=== PATIENT | male | born 1990 | race African-American/Black ===

== ENCOUNTER 2018-01-22 00:17 | Emergency (ER) | payer SELFPAY ==
[2018-01-22] MEDS ORDERED: Ibuprofen 800 MG TAB ONE (02:05)
--- NOTE | 2018-01-22 08:03 | RAD ---
2 VIEWS CHEST: Date: 01/22/18 COMPARISON: 01/14/03. HISTORY: Mid sternal chest pain. FINDINGS: Two views of the chest show normal sized cardiomediastinal silhouette. There is no evidence of consol idation, mass, or pleural effusion. The bones are unremarkable. IMPRESSION: No evidence of acute cardiopulmonary disease. POS: [facility]
--- NOTE | 2018-01-23 15:53 | EKG ---
Test Reason : Blood Pressure : / mmHG Vent. Rate : 062 BPM Atrial Rate : 062 BPM P-R Int : 136 ms QRS Dur : 084 ms QT Int : 406 ms P-R-T Axes : 067 079 043 degrees QTc Int : 412 ms Normal sinus rhythm with sinus arrhythmia Normal ECG Confirmed by FRACISCO SINGH ([id number]), assistant editor GOSIA ALICEA ([id number] on 01/23/2018 3:53:14 PM Referred By: Confirmed By:FRACISCO SINGH
== END 2018-01-22 02:12 | disposition home or self-care (01) ==
LOC: ERS 00:17
DX: R07.89 Other chest pain (principal)
CPT/HCPCS: 71046; 93005

== ENCOUNTER 2018-03-26 23:29 | Emergency (ER) | payer SELFPAY ==
[2018-03-26] MEDS ORDERED: Ondansetron ODT 4 MG TAB ONE (23:56)
[2018-03-26] MEDS ORDERED: Acetaminophen 325 MG TAB ONE (23:56)
[2018-03-27] MEDS ORDERED: Metoclopramide HCl 10 MG/2 ML VIAL ONE (00:21)
[2018-03-27] MEDS ORDERED: diphenhydrAMINE 50 MG/ML VIAL ONE (00:21)
== END 2018-03-27 01:27 | disposition home or self-care (01) ==
LOC: ERS 23:29
DX: R51 Headache (principal)
CPT/HCPCS: 87804; 96365; 96375; J1200; J2765; Q0162

== ENCOUNTER 2018-07-11 13:58 | Emergency (ER) | payer SELFPAY ==
[2018-07-11] MEDS ORDERED: methylPREDNISolone Sod Succ/PF 125 MG/2 ML VIAL ONE (14:13)
[2018-07-11] MEDS ORDERED: Famotidine 20 MG TAB ONE (14:14)
[2018-07-11] MEDS ORDERED: Mag-Al 1200 mg/1200 mg/30 ML UDCUP ONE (14:30)
[2018-07-11] MEDS ORDERED: Lidocaine Viscous Sol 2% 15 ml UD Cup ONE (14:30)
[2018-07-11] MEDS ORDERED: EPINEPHrine 1 MG/ML AMP ONE (14:30)
== END 2018-07-11 18:29 | disposition home or self-care (01) ==
LOC: ERS 13:58
DX: S10.96XA Insect bite of unspecified part of neck, initial encounter (principal); L50.0 Allergic urticaria; W57.XXXA Bitten or stung by nonvenomous insect and other nonvenomous arthropods, initial encounter
CPT/HCPCS: 96372; 96374; J0171; J2930

== ENCOUNTER 2018-09-23 15:07 | Emergency (ER) | payer SELFPAY ==
[2018-09-23] MEDS ORDERED: predniSONE 20 MG TAB ONE (15:19)
[2018-09-23] MEDS ORDERED: Famotidine 20 MG TAB ONE (15:19)
[2018-09-23] MEDS ORDERED: diphenhydrAMINE 25 MG CAP ONE (15:19)
== END 2018-09-23 16:59 | disposition home or self-care (01) ==
LOC: ERS 15:07
DX: T78.40XA Allergy, unspecified, initial encounter (principal); Z71.6 Tobacco abuse counseling; F17.210 Nicotine dependence, cigarettes, uncomplicated
CPT/HCPCS: 99406; J7512; Q0163

== ENCOUNTER 2021-03-25 16:38 | Emergency (ER) | payer SELFPAY | END 2021-03-25 17:38 | disposition home or self-care (01) | LOC: ERS 16:38 | DX: S61.411A Laceration without foreign body of right hand, initial encounter (principal); F17.210 Nicotine dependence, cigarettes, uncomplicated; W26.8XXA Contact with other sharp object(s), not elsewhere classified, initial encounter | CPT/HCPCS: 12001 ==

== ENCOUNTER 2021-07-20 22:58 | Emergency (ER) | payer SELFPAY | END 2021-07-20 23:48 | disposition home or self-care (01) | LOC: ERS 22:58 | DX: G89.29 Other chronic pain (principal); M25.531 Pain in right wrist; F17.210 Nicotine dependence, cigarettes, uncomplicated | CPT/HCPCS: 99283 ==

== ENCOUNTER 2021-11-01 19:57 | Emergency (ER) | payer SELFPAY | END 2021-11-01 20:39 | disposition home or self-care (01) | LOC: ERS 19:57 | DX: R04.0 Epistaxis (principal) | CPT/HCPCS: 99283 ==

== ENCOUNTER 2023-03-26 09:52 | Emergency (ER) | payer BC, SELFPAY ==
[2023-03-26] MEDS ORDERED: Cyclobenzaprine 10 MG TAB ONE (11:01)
== END 2023-03-26 11:09 | disposition home or self-care (01) ==
LOC: ERS 09:52
DX: S16.1XXA Strain of muscle, fascia and tendon at neck level, initial encounter (principal); X50.0XXA Overexertion from strenuous movement or load, initial encounter
CPT/HCPCS: 99283

== ENCOUNTER 2023-08-09 10:39 | Emergency (ER) | payer BC, SELFPAY ==
[2023-08-09] MEDS ORDERED: Triple Antibiotic Oint 1 GM Packet ONE (12:53)
== END 2023-08-09 13:17 | disposition home or self-care (01) ==
LOC: ERS 10:39
DX: S62.394A Other fracture of fourth metacarpal bone, right hand, initial encounter for closed fracture (principal); W22.8XXA Striking against or struck by other objects, initial encounter
CPT/HCPCS: 26600